=== PATIENT | male | born 1950 | race Caucasian/White ===

== ENCOUNTER 2018-02-12 11:01 | Emergency (ER) | payer OTHER ==
[~2018-02-12] VITALS: Ht 170.2 cm; Wt 101.0 kg
[2018-02-12] MEDS ORDERED: LISINOPRIL20 MG PO (11:14)
[2018-02-12 12:00] LABS: ABSOLUTE BASOPHILS 0.1 thou/uL (0.0-0.2); ABSOLUTE EOSINOPHILS 0.1 thou/uL (0.0-0.7); ABSOLUTE LYMPHOCYTES 1.2 thou/uL (0.8-5.3); ABSOLUTE MONOCYTES 0.6 thou/uL (0.0-1.2); ABSOLUTE NEUTROPHILS 4.8 thou/uL (1.6-8.1); EOSINOPHILS 1.3 %; HEMATOCRIT 48.9 % (42.0-52.0); HEMOGLOBIN 16.3 gm/dL (14.0-18.0); LYMPHOCYTES 17.8 %; MCH 30.3 pg (26.0-34.0); MCHC 33.3 g/dL (28.0-37.0); MCV 90.8 fL (80.0-100.0); MONOCYTES 8.9 %; MPV 9.1 fl. (7.2-11.1); NUCLEATED RBCS 0 /100WBC; PLATELET COUNT* 157 thou/uL (150-400); RBC 5.38 mil/uL (4.50-6.00); RDW-CV 13.1 % (10.5-14.5); WBC 6.7 thou/uL (4.0-11.0)
[2018-02-12 12:14] LABS: ANION GAP 6 mmol/L (7-16); BUN 10 mg/dL (7-18); CALCIUM 8.9 mg/dL (8.5-10.1); CHLORIDE 106 mmol/L (98-107); CO2 28 mmol/L (21-32); CREATININE 1.4 mg/dL (0.6-1.3); GLUCOSE 93 mg/dL (70-99); POTASSIUM 3.7 mmol/L (3.5-5.1); SODIUM 140 mmol/L (136-145)
[2018-02-12 12:19] LABS: ALBUMIN 3.2 g/dL (3.4-5.0); ALKALINE PHOSPHATASE 88 U/L (46-116); SGOT 14 U/L (15-37); SGPT 17 U/L (30-65); TOTAL BILIRUBIN 0.4 mg/dL (<0.1-1.0); TOTAL PROTEIN 6.7 g/dL (6.4-8.2); TROPONIN-I LEVEL <0.06 ng/mL (<0.06)
[2018-02-12] MEDS ORDERED: HYDROCHLOROTH12.5 M1 PO (12:30)
[2018-02-12 12:35] VITALS: BP 188/117
--- NOTE | 2018-02-12 16:24 | EKG ---
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1950 Requested By: Rolly Meyers Order Number: [id number] MD: Raffi Schroeder Measurements Intervals [place] Rate: 76 P: 17 VT: 184 QRS: 1 QRSD: 94 T: 59 QT: 378 QTc: 426 Interpretive Statements Sinus rhythm Consider left atrial enlargement Abnormal R-wave progression, early transition No previous ECG available for comparison Electronically Signed On 02-12-2018 16:24:41 CDT by Raffi Schroeder [email or web address] <ELECTRONICALLY SIGNED> By: Raffi Schroeder MD, [facility] 02/12/18 1624 1110 1110 Raffi Schroeder MD, FACC /EPI
== END 2018-02-12 12:42 | disposition home or self-care (01) ==
LOC: M.ERS 11:01
PROVIDERS: Emergency Medicine
DX: I10 Essential (primary) hypertension (principal); F15.10 Other stimulant abuse, uncomplicated; Z88.0 Allergy status to penicillin